=== PATIENT | female | born 1980 | race Caucasian/White ===

== ENCOUNTER 2017-06-28 18:29 | Emergency (ER) | payer OTHER ==
[~2017-06-28] VITALS: Ht 157.5 cm; Wt 77.1 kg
[2017-06-28] MEDS ORDERED: TRAMADOL HCL50 MG ORAL (18:44)
--- NOTE | 2017-06-28 18:53 | Emergency Room Report ---
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 Reports that she's having increased pain diffusely in her shoulders back Denies any fevers denies any neck pain or photophobia Patient is not quite sure what has exacerbated her pain She also reports that she usually goes urgent care for breakthrough pain however was not able to go to the urgent care today Allergies: Uncoded Allergies: SULFA (Allergy, Unknown, 06/28/17) Patient History Past Medical History: see triage record Pertinent Family History: none Now: No Reviewed Nursing Documentation: PMH: Agreed, PSxH: Agreed Nursing Documentation-PMH Past Medical History: No History, Except For Review of Systems All Other Systems: negative except mentioned in HPI Physical Exam Vital Signs Date Time Temp Pulse Resp B/P (MAP) Pulse Ox O2 Delivery O2 Flow Rate FiO2 06/28/17 18:36 98.1 79 18 118/83 96 Room Air Sp02 EP Interpretation: reviewed, normal General Appearance: no apparent distress - However is uncomfortable with movement Head: normocephalic, atraumatic Eyes: bilateral eye PERRL, bilateral eye EOMI ENT: hearing grossly normal, normal pharynx, TMs + canals normal, uvula midline Neck: full range of motion, supple, no meningismus, no bony tend Respiratory: lungs clear, normal breath sounds, no rhonchi, no respiratory distress, no retraction, no accessory muscle use Cardiovascular #1: normal peripheral pulses, regular rate, rhythm, no edema, no gallop, no JVD, no murmur Gastrointestinal: normal bowel sounds, non tender, soft, no mass, no organomegaly, non-distended, no guarding, no hernia, no pulsatile mass, no rebound Musculoskeletal: normal inspection Neurologic: oriented x3, responsive, 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 analyst III-XII nml as tested, motor strength/ tone normal, sensory intact Psychiatric: mood/affect normal Skin: normal color, no rash, warm/dry, palpation normal Lymphatic: normal inspection, no adenopathy Medical Decision Making Diagnostic Impression: Primary Impression: Back pain ER Course Multiple differentials considered Patient however presents with what appears to be breakthrough pain from her previous chronic medical conditions Patient has done significantly improved At this time is stable for close outpatient followup Last Vital Signs Date Time Temp Pulse Resp B/P (MAP) Pulse Ox O2 Delivery O2 Flow Rate FiO2 06/28/17 18:36 98.1 79 18 118/83 96 Room Air Status: improved Disposition: HOME, SELF-CARE Condition: Improved Scripts Prednisone* (PREDNISONE*) 20 Mg Tablet 20 MG ORAL BID for 5 Days, TAB Prov: CHARLIE ELKINS D.O. 06/28/17 Additional Instructions: Patient is provided with the discharge instructions notified to follow up with primary doctor in the next 2-3 days otherwise return to the er with any worsening symptoms. Please note that this report is being documented using [employer] technology. This can lead to erroneous entry secondary to incorrect interpretation by the dictating instrument. CHARLIE ELKINS D.O. Jun 28, 2017 18:53
[2017-06-28] MEDS ORDERED: Ketorolac 60mg Inj IM ONE (19:00)
[2017-06-28] MEDS ORDERED: Morphine Sulfate 4mg/ml Inj IM ONE (19:00)
[2017-06-28 19:11] VITALS: BP 122/78
[2017-06-28] MEDS ORDERED: PREDNISONE20 MG ORAL (19:11)
[2017-06-28 19:35] VITALS: BP 122/78
== END 2017-06-28 19:35 | disposition home or self-care (01) ==
LOC: EMR 18:50
DX: M54.9 Dorsalgia, unspecified (principal); M79.7 Fibromyalgia; Z88.2 Allergy status to sulfonamides
CPT/HCPCS: 96372; 99284; J2270

== ENCOUNTER 2020-07-04 23:30 | Emergency (ER) | payer SELFPAY ==
[~2020-07-04] VITALS: Ht 157.5 cm; Wt 95.3 kg
[~2020-07-04 23:30] MED LIST: PREDNISONE20 MG ORAL; TRAMADOL HCL50 MG ORAL
[2020-07-04 23:43] VITALS: BP 147/92
[2020-07-04] MEDS ORDERED: Tetracaine 0.5% Opth 4ml Soln ONE (23:46)
[2020-07-04] MEDS ORDERED: Fluorescein Strips ONE (23:46)
[2020-07-05] MEDS ORDERED: CLINDAMYCIN HC300 MG ORAL (00:12)
--- NOTE | 2020-07-05 00:12 | Emergency Room Report ---
History of Present Illness General Chief Complaint: Skin Rash/Abscess Source: Patient Present Illness HPI Disclaimer: Please note that this report is being documented using [employer] technology. This can lead to erroneous entry secondary to incorrect interpretation by the dictating instrument. HPI: 39-year-old female presents for evaluation of skin infection and eye irritation. Patient states several days ago she felt some irritation over the left breast. She noted some redness today without drainage, warmth or fluctuance. She has a history of staph infections. No recent antibiotics. Also complaining of left eye discomfort. She thinks she has some swelling of the left lower lid. Denies changes in her vision, purulent drainage, increased lacrimation, photophobia, swelling of the orbit, redness of the eye. No recent trauma. 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 EOMI. PERRLA. Noninjected sclera, no purulent drainage, no increased lacrimation. No proptosis, no hyphema, no hypopyon. Fluorescein exam does not show ulceration, abrasion, dendrites or evidence of globe injury. Mild swelling of the rim of the lower lid. Resp: Normal work of breathing Skin: Intact. There is a 2.5 x 2 cm area of erythema over the left breast above the nipple. Mildly tender. No warmth, no fluctuance. No overlying pustule. MSK: Normal tone and bulk. Moving all extremities. No obvious deformity. Neuro: Awake and alert. Mentating appropriately Medical Decision Making Diagnostic Impression: Primary Impression: Cellulitis Additional Impression: Blepharitis of eyelid of left eye ER Course Is a 39-year-old female presenting for evaluation of irritation and rash over the left breast. Physical exam most consistent with a superficial cellulitis over the left breast. A bedside ultrasound was performed by me showing no deep space infection or drainable abscess. Patient is allergic to sulfa and states she has recurrent staph infections. Will put on clindamycin as this is worked for her in the past. First dose given in the emergency department. Regarding her eye irritation I see no evidence of corneal abrasion, ulceration, acute angle-closure glaucoma or other significant findings. Her exam is most consis tent with a blepharitis will treat with warm compresses. Patient will follow up with her PMD. Stable for outpatient follow-up. Do not believe she requires emergent labs or imaging in the ER. Discussed reasons to return to the emergency department. She understands and agrees with this treatment plan. Diagnostic POCUS Bedside Ultrasound Diagnostics: Bedside US Exam performed: Soft Tissue Limited Indication: Abcess/Cellulitis Number of Views: Limited Interpreted by Emergency Physi: Yes Soft Tissue Limited Findings: No fluid collections, No abcess, No cobblestone appearance, No foreign body, No acute findings Electronically Signed by: Electronically signed by Dr. Broderick Cooepr MD Last Vital Signs Date Time Temp Pulse Resp B/P (MAP) Pulse Ox O2 Delivery O2 Flow Rate FiO2 07/04/20 23:43 98.8 18 147/92 99 Room Air 07/04/20 23:30 87 Disposition: HOME, SELF-CARE Condition: Stable Scripts Clindamycin Hcl (CLINDAMYCIN HCL) 300 Mg Capsule 300 MG ORAL THREE TIMES A DAY for 7 Days, #21 CAP Prov: Broderick Cooper MD 07/05/20 Patient Instructions: Blepharitis, Cellulitis Additional Instructions: Please follow-up with your primary care doctor in the next 1 to 3 days to discuss this emergency department visit and for reevaluation. If you have any new or worsening symptoms please return to the emergency department for reevaluation. Please note that this report is being documented using [employer] technology. This can lead to erroneous entry secondary to incorrect interpretation by the dictating instrument. Broderick Cooper MD Jul 05, 2020 00:12
[2020-07-05] MEDS ORDERED: Clindamycin 150mg cap ONE (00:51)
[2020-07-05 00:59] VITALS: BP 147/92
[2020-07-05] MEDS ORDERED: Clindamycin 150mg cap ORAL SCH (01:00)
== END 2020-07-05 00:59 | disposition home or self-care (01) ==
LOC: EMR 23:45
DX: N61.0 Mastitis without abscess (principal); H01.005 Unspecified blepharitis left lower eyelid; Z88.2 Allergy status to sulfonamides
CPT/HCPCS: 99282